=== PATIENT | female | born 1980 | race African-American/Black ===

== ENCOUNTER 2018-07-01 21:40 | Emergency (ER) | payer OTHER ==
[~2018-07-01] VITALS: Ht 167.6 cm; Wt 66.0 kg
[~2018-07-01 21:40] MED LIST: AMOXICILLIN500 M1 PO; FLEXERIL5 MG PO; MOTRIN600 MG PO; MOTRIN800 MG PO; PERCOCET 5/31 TABLET PO; WELLBUTRIN100 MG PO
[2018-07-01 22:37] LABS: HEMATOCRIT 34.2 % (36.0-46.0); HEMOGLOBIN 11.3 G/DL (11.9-15.5); MCH 30.2 PG (29.0-34.0); MCV 91.4 FL (83-99); PLATELET COUNT 181 K/uL (156-360); RBC DIS.WIDTH-CV 16.7 % (11.8-14.6); RBC DIS.WIDTH-SD 56.6 % (39-53); RED BLOOD COUNT 3.74 M/uL (3.80-5.20); WHITE BLOOD COUNT 5.3 K/uL (4.1-10.2)
[2018-07-01 22:47] LABS: CHLORIDE 108 mEq/L (99-109); POTASSIUM 3.6 mEq/L (3.7-5.4); SODIUM 143 mEq/L (136-147)
[2018-07-01 22:48] LABS: GLUCOSE 83 mg/dL (70-99)
[2018-07-01 22:51] LABS: SERUM ETHYL ALCOHOL 97 mg/dL
[2018-07-01 22:52] LABS: CREATININE 0.8 mg/dL (0.6-1.3); GFR ESTIMATE (CALCULATED) > 59 mL/min/
[2018-07-01 22:54] LABS: UREA NITROGEN (BUN) 9 mg/dL (9-23)
[2018-07-01 22:55] LABS: SALICYLATE < 5.0 MG/DL (15-30)
[2018-07-01 22:56] LABS: ACETAMINOPHEN (TYLENOL) < 10 mcg/mL (10-30)
[2018-07-01 23:01] LABS: QUANTITATIVE HCG < 4.0 MIU/ML
[2018-07-01 23:42] VITALS: BP 118/77
== END 2018-07-02 00:04 | disposition home or self-care (01) ==
LOC: EME 21:40
PROVIDERS: Emergency Medicine
DX: T50.901A Poisoning by unspecified drugs, medicaments and biological substances, accidental (unintentional), initial encounter (principal); F10.120 Alcohol abuse with intoxication, uncomplicated; Y90.4 Blood alcohol level of 80-99 mg/100 ml; F17.210 Nicotine dependence, cigarettes, uncomplicated; Z88.2 Allergy status to sulfonamides; Z88.8 Allergy status to other drugs, medicaments and biological substances
CPT/HCPCS: 80048; 84702; 85027; 93005; 99281; 99284; G0480; J7030